=== PATIENT | female | born 1950 | race African-American/Black ===

== ENCOUNTER 2023-02-28 14:20 | Emergency (ER) | payer MEDICARE ==
[~2023-02-28] VITALS: Ht 165.1 cm; Wt 63.5 kg
[2023-02-28 14:28] VITALS: BP 130/68
[2023-02-28] MEDS ORDERED: LISINOPRIL-HCT1 EACH PO (14:54)
[2023-02-28] MEDS ORDERED: GLIMEPIRIDE1 M2 PO (14:54)
[2023-02-28] MEDS ORDERED: Simvastatin40 MG PO (14:54)
== END 2023-02-28 15:21 | disposition home or self-care (01) ==
LOC: ER 14:20
DX: S61.412A Laceration without foreign body of left hand, initial encounter (principal); Z23 Encounter for immunization; W26.8XXA Contact with other sharp object(s), not elsewhere classified, initial encounter; Z79.899 Other long term (current) drug therapy
CPT/HCPCS: 12001; 90471; 90714; 99282-25

== ENCOUNTER 2025-01-13 13:33 | Emergency (ER) | payer MEDICARE ==
[~2025-01-13] VITALS: Ht 162.6 cm; Wt 61.2 kg
[~2025-01-13 13:33] MED LIST: GLIMEPIRIDE1 M2 PO; LISINOPRIL-HCT1 EACH PO; Simvastatin40 MG PO
[2025-01-13 14:49] LABS: BASOPHILS ABSOLUTE AUTO 0.05 K/mm3 (0.00-0.23); BASOPHILS PERCENT AUTO 1 % (0-2); EOSINOPHILS ABSOLUTE AUTO 0.05 K/mm3 (0.00-0.68); EOSINOPHILS PERCENT AUTO 1 % (0-6); Hematocrit 37.8 % (33.0-51.0); Hemoglobin 12.3 g/dL (11.5-16.0); IMMATURE GRAN ABSOLUTE AUTO 0.01 K/mm3 (0.00-0.10); IMMATURE GRAN PERCENT AUTO 0 % (0-1); LYMPHOCYTES ABSOLUTE AUTO 0.95 K/mm3 (0.84-5.20); LYMPHOCYTES PERCENT AUTO 17 % (21-46); MONOCYTES ABSOLUTE AUTO 0.46 K/mm3 (0.16-1.47); MONOCYTES PERCENT AUTO 8 % (4-13); Mean Corpuscular HGB 27.2 pg (26.0-34.0); Mean Corpuscular HGB Conc 32.5 g/dL (31.5-36.5); Mean Corpuscular Volume 84 fL (80-100); Mean Platelet Volume 9.6 fL (9.1-12.4); NEUTROPHILS ABSOLUTE AUTO 4.02 K/mm3 (1.96-9.15); NEUTROPHILS PERCENT AUTO 73 % (41-73); Platelet Count 266 K/mm3 (150-400); RDW Coefficient Variation 13.3 % (11.7-14.2); RDW Standard Deviation 40.9 fL (35.1-46.3); Red Blood Cell Count 4.52 M/mm3 (3.80-5.20); White Blood Cell Count 5.54 K/mm3 (4.00-11.30)
[2025-01-13 15:36] LABS: Albumin, Blood 3.7 g/dL (3.4-5.0); Albumin/Globulin Ratio 0.9 (0.8-1.8); Bilirubin, Total 0.6 mg/dL (0.1-1.0); Bun/Creatinine Ratio 27.4 (12.0-20.0); Calcium, Blood 9.1 mg/dL (8.5-10.1); Creatinine, Blood 0.55 mg/dL (0.40-1.00); Globulin, Blood 3.9 g/dL (2.2-4.0); Thyroid Stimulating Hormone 0.158 uIU/mL (0.360-4.800); Total Protein, Blood 7.6 g/dL (6.4-8.2)
[2025-01-13] MEDS ORDERED: Potassium Chloride 20 MEQ TabCR PO ONE (15:45)
[2025-01-13 16:08] LABS: U Amphetamine Screen Not Detected; U Barbituate Screen Not Detected; U Benzodiazapine Screen Not Detected; U Buprenorphine Screen Not Detected; U Cannabinoids Screen Not Detected; U Cocaine Screen Not Detected; U Methadone Screen Not Detected; U Methamphetamine Screen Not Detected; U Opiates Screen Not Detected; U Oxycodone Screen Not Detected; U Phencyclidine Screen Not Detected
[2025-01-13 16:32] LABS: Free Thyroxine 1.89 ng/dL (0.70-1.60)
[2025-01-13 16:33] LABS: Triiodothyronine, Free 2.69 pg/mL (2.18-3.98)
[2025-01-13 17:11] VITALS: BP 154/79
== END 2025-01-13 17:28 | disposition home or self-care (01) ==
LOC: ER 13:33
PROVIDERS: Student in an Organized Health Care Education/Training Program
DX: E05.90 Thyrotoxicosis, unspecified without thyrotoxic crisis or storm (principal); I10 Essential (primary) hypertension; E78.5 Hyperlipidemia, unspecified
CPT/HCPCS: 80053; 84439; 84443; 84481; 84484; 85025; 93005; 93010; 99285-25; A9270